=== PATIENT | male | born 1970 | race Caucasian/White ===

== ENCOUNTER 2021-08-30 11:25 | Emergency (ER) | payer OTHER ==
[2021-08-30 14:42] LABS: CORONAVIRUS COVID-19 NAA POSITIVE (NEGATIVE)
== END 2021-08-30 15:23 | disposition home or self-care (01) ==
LOC: JD.ED 11:25
DX: U07.1 COVID-19 (principal); N13.2 Hydronephrosis with renal and ureteral calculous obstruction; R74.8 Abnormal levels of other serum enzymes
CPT/HCPCS: 0241U; 36415; 74176; 80053; 81001; 82553; 83690; 85025; 99284